=== PATIENT | male | born 1940 | race Caucasian/White ===

== ENCOUNTER → 2016-05-02 | Outpatient (CLI) | payer MEDICARE, BC ==
[~2016-05-02] MED LIST: ALDACTONE 100M100 MG PO; ALDACTONE 25MG25 M1 PO; ALDACTONE25 MG PO; ALDACTONE50 MG; ALDACTONE50 MG PO; ALLOPURINOL100 MG PO; ALLOPURINOL300 MG PO; ALMACONE 360 M360 ML PO; APRESOLINE 10MG10 MG PO; ASPIR-LOW81 MG PO; ASPIRIN E.C. 8181 MG PO; BYSTOLIC PO; CALCIUM 600/VIT1 CA1 PO; CAPOTEN 12.512.5 MG PO; CAPOTEN 25MG25 MG PO; CAPOTEN 50MG50 MG PO; CELEXA 20MG20 MG/TAB PO; CELEXA10 MG PO; CEPHALEXIN500 M1 PO; CITALOPRAM10 MG PO; CORDARONE200 MG/TAB PO; DEMADEX 20MG20 M1 PO; DIGITEK0.125 MG PO; FLONASEALLERGY NS; GENTLE LAXATIVE10 MG RC; IMODIUM 2MG CAPS2 MG PO; ISORDIL 10MG10 MG PO; LAMISIL250 MG PO; LANOX0.0625 PO; LASIX 20MG TABL20 MG PO; LASIX 40MG TABL40 MG PO; LIPITOR 10MG10 MG PO; LISINOPRIL/HCTZ1 TA1 PO; LISINOPRIL10 MG PO; LISINOPRIL5 MG PO; LOPRESSOR 225 MG/TAB PO; LOPRESSOR 550 MG/TAB PO; MECLIZINE HCL25 M1 PO; MEVACOR10 MG PO; MILK OF MA400 MG/52 PO; NASONEX0.05 MG/AC NS; PLAVIX 75MG TAB75 MG PO; PROTONIX 40MG T40 MG PO; TOPROL XL 25MG25 MG PO; TYLENOL 325MG325 MG PO; TYLENOL SU650 MG/SUP RC; XANAX 0.5MG0.5 MG PO; ZYLOPRIM 300MG300 MG PO; ZYRTEC 10MG PO
[2016-05-02 21:37] LABS: CALCIUM 8.3 mg/dL (8.4-10.2); CREATININE, serum 2.08 mg/dL (0.66-1.25); POTASSIUM 3.6 mmol/L (3.4-5.0)
== END ==
LOC: ZCOL.LAB 19:24
PROVIDERS: Internal Medicine Nephrology
DX: D50.0 Iron deficiency anemia secondary to blood loss (chronic) (principal)

== ENCOUNTER 2016-05-16 10:11 | Inpatient (IN) | payer MEDICARE, BC ==
[~2016-05-16] VITALS: Ht 185.4 cm; Wt 116.0 kg
[2016-05-16] VITALS (643 sets, daily range): BP systolic 106–123; BP diastolic 53–98; PULSE 59–68; TEMP 1; O2SAT 74–100
[~2016-05-16 10:11] MED LIST changes: -ALDACTONE50 MG; -ALMACONE 360 M360 ML PO; -DEMADEX 20MG20 M1 PO; -GENTLE LAXATIVE10 MG RC; -IMODIUM 2MG CAPS2 MG PO; -MILK OF MA400 MG/52 PO; -TYLENOL 325MG325 MG PO; -TYLENOL SU650 MG/SUP RC
[2016-05-16] MEDS ORDERED: DEMADEX 20MG20 M1 PO (12:11)
[2016-05-16 13:51] LABS: TROPONIN-I 0.113 ng/mL (0.000-0.034)
[2016-05-16] MEDS ORDERED: MILK OF MA400 MG/52 PO (14:01)
[2016-05-16] MEDS ORDERED: ALMACONE 360 M360 ML PO (14:02)
[2016-05-16] MEDS ORDERED: TYLENOL SU650 MG/SUP RC (14:03)
[2016-05-16] MEDS ORDERED: GENTLE LAXATIVE10 MG RC (14:03)
[2016-05-16] MEDS ORDERED: TYLENOL 325MG325 MG PO (14:04)
[2016-05-16] MEDS ORDERED: ALDACTONE50 MG (14:06)
[2016-05-16] MEDS ORDERED: IMODIUM 2MG CAPS2 MG PO (14:14)
[2016-05-16 16:49] LABS: HEMATOCRIT 27.8 % (42.0-52.0); MEAN CELL VOLUME 87 fl (80.0-100.0); MEAN CORPUSCULAR HEMOGLOBIN 28 pg (27.0-31.0); MEAN CORPUSCULAR HGB CONC 32 g/dl (33.0-37.0); MEAN PLATELET VOLUME 10.1 fl (7.4-10.4); PLATELET COUNT 218 K/mm3 (130-400); RED BLOOD COUNT 3.18 M/mm3 (4.20-5.60); WHITE BLOOD COUNT 5.5 K/mm3 (4.8-10.8)
[2016-05-16 17:03] LABS: ADJUSTED CALCIUM 9.9 mg/dL (8.4-10.2); ALBUMIN 3.5 gm/dL (3.5-5.0); CALCIUM 9.5 mg/dL (8.4-10.2); CREATININE, serum 3.89 mg/dL (0.66-1.25); DIGOXIN 2.2 ng/mL (0.8-2.0); POTASSIUM 4.4 mmol/L (3.4-5.0); TOTAL PROTEIN 6.3 gm/dL (6.4-8.2)
[2016-05-17] VITALS (1201 sets, daily range): BP systolic 90–116; BP diastolic 52–70; PULSE 55–88; TEMP 97–97.6; O2SAT 71–100
[2016-05-17 06:01] LABS: CALCIUM 9.6 mg/dL (8.4-10.2); CREATININE, serum 3.41 mg/dL (0.66-1.25); POTASSIUM 4.1 mmol/L (3.4-5.0)
[2016-05-17 06:20] LABS: TROPONIN-I 0.087 ng/mL (0.000-0.034)
[2016-05-18] VITALS (938 sets, daily range): BP systolic 91–119; BP diastolic 57–72; PULSE 65–84; TEMP 97.4–98.1; O2SAT 90–100
[2016-05-18 06:27] LABS: CALCIUM 9.2 mg/dL (8.4-10.2); CREATININE, serum 3.2 mg/dL (0.66-1.25); POTASSIUM 3.9 mmol/L (3.4-5.0)
[2016-05-18 07:21] LABS: TROPONIN-I 0.112 ng/mL (0.000-0.034)
[2016-05-18 21:53] LABS: CREATININE, serum 2.49 mg/dL (0.66-1.25); MAGNESIUM 2.1 mg/dL (1.6-2.3); POTASSIUM 3.8 mmol/L (3.4-5.0)
[2016-05-19] VITALS (1380 sets, daily range): BP systolic 90–102; BP diastolic 54–62; PULSE 64–80; TEMP 97.1–98.9; O2SAT 79–100
[2016-05-19 06:15] LABS: ADJUSTED CALCIUM 9.4 mg/dL (8.4-10.2); ALBUMIN 3.4 gm/dL (3.5-5.0); BILIRUBIN,TOTAL 1.2 mg/dL (0.0-1.0); CALCIUM 8.9 mg/dL (8.4-10.2); CREATININE, serum 2.95 mg/dL (0.66-1.25); POTASSIUM 3.9 mmol/L (3.4-5.0); TOTAL PROTEIN 6.5 gm/dL (6.4-8.2)
[2016-05-19 06:31] LABS: TROPONIN-I 0.178 ng/mL (0.000-0.034)
[2016-05-20] VITALS (547 sets, daily range): BP systolic 95–165; BP diastolic 54–90; PULSE 59–78; TEMP 97–98.4; O2SAT 79–100
[2016-05-21 00:35] VITALS: BP 100/58; PULSE 60; TEMP 98.4
[2016-05-21 03:06] VITALS: BP 110/56; PULSE 61; TEMP 98.6
[2016-05-21 07:39] LABS: CALCIUM 8.8 mg/dL (8.4-10.2); CREATININE, serum 2.24 mg/dL (0.66-1.25); POTASSIUM 3.3 mmol/L (3.4-5.0)
[2016-05-21 09:29] VITALS: BP 94/54; PULSE 59; TEMP 97.9
[2016-05-21] MEDS ORDERED: TOPROL XL 25MG25 MG PO ×2 (10:18→10:19)
[2016-05-21] MEDS ORDERED: CAPOTEN 12.512.5 MG PO (10:21)
[2016-05-21] MEDS ORDERED: ALDACTONE50 MG PO (10:21)
[2016-05-21] MEDS ORDERED: DEMADEX 20MG20 M1 PO (10:23)
[2016-05-21 12:05] VITALS: BP 94/54; PULSE 59; TEMP 97.9
== END 2016-05-21 12:45 | DRG 287 ==
LOC: ICU 10:11 → IMCU 05-17 19:03 → MEDICAL 05-20 11:15
PROVIDERS: Emergency Medicine; Internal Medicine Interventional Cardiology
PROC: 4A023N6 Measurement of Cardiac Sampling and Pressure, Right Heart, Percutaneous Approach (ICD-10-PCS; principal; 2016-05-16)
DX: I11.0 Hypertensive heart disease with heart failure (principal); I47.2 Ventricular tachycardia; Z66 Do not resuscitate; I50.23 Acute on chronic systolic (congestive) heart failure; I25.10 Atherosclerotic heart disease of native coronary artery without angina pectoris; Z95.810 Presence of automatic (implantable) cardiac defibrillator; Z95.5 Presence of coronary angioplasty implant and graft; I25.5 Ischemic cardiomyopathy; I27.2 Other secondary pulmonary hypertension
CPT/HCPCS: A4315; C1751; C1769; C1894; J0282; J1250; J1265; J1644; J2001; J2250; J3010; J7030; J7060

== ENCOUNTER → 2016-06-07 | Outpatient (REF) ==
[~2016-06-07] MED LIST changes: +ALDACTONE50 MG; +ALMACONE 360 M360 ML PO; +DEMADEX 20MG20 M1 PO; +GENTLE LAXATIVE10 MG RC; +IMODIUM 2MG CAPS2 MG PO; +MILK OF MA400 MG/52 PO; +TYLENOL 325MG325 MG PO; +TYLENOL SU650 MG/SUP RC
== END ==
LOC: ZCOL.LAB 10:29
DX: Z01.89 Encounter for other specified special examinations (principal)

== ENCOUNTER → 2016-06-08 | Outpatient (REF) ==
[2016-06-08 16:47] LABS: HEMATOCRIT 27.5 % (42.0-52.0); HEMOGLOBIN 8.7 g/dl (13.5-18.0)
== END ==
LOC: ZCOL.LAB 12:34
PROVIDERS: Emergency Medicine
DX: Z01.89 Encounter for other specified special examinations (principal)

== ENCOUNTER → 2016-09-01 | Outpatient (REF) ==
[2016-09-01 12:31] LABS: MEAN CELL VOLUME 105 fl (80.0-100.0); MEAN CORPUSCULAR HGB CONC 33 g/dl (33.0-37.0); MEAN PLATELET VOLUME 8.9 fl (7.4-10.4); PLATELET COUNT 280 K/mm3 (130-400); RED BLOOD COUNT 3.07 M/mm3 (4.20-5.60); REDCELL DISTRIBUTION WIDTH-CV 19.3 % (11.5-14.5); WHITE BLOOD COUNT 9.2 K/mm3 (4.8-10.8)
[2016-09-01 12:34] LABS: HEMATOCRIT 32.3 % (42.0-52.0); HEMOGLOBIN 10.7 g/dl (13.5-18.0); MEAN CORPUSCULAR HEMOGLOBIN 35 pg (27.0-31.0)
[2016-09-01 12:35] LABS: ADD PATHOLOGY DIFF REVIEW NO
[2016-09-01 13:00] LABS: BAND 1 % (0-10); NEUTROPHILS 93 % (42.0-75.2); TOTAL CELLS COUNTED 100
[2016-09-01 13:01] LABS: ANISOCYTOSIS 3+; PLATELET ESTIMATE NORMAL (NORMAL)
== END ==
LOC: ZCOL.LAB 12:27
PROVIDERS: Internal Medicine Rheumatology
DX: Z01.89 Encounter for other specified special examinations (principal)